=== PATIENT | male | born 1995 ===

== ENCOUNTER 2021-12-31 09:13 | Emergency (ER) | payer OTHER ==
[~2021-12-31] VITALS: Ht 180.3 cm; Wt 77.1 kg
[2021-12-31] MEDS ORDERED: BACITRACIN ZIN1 EAC1 TOP (10:36)
== END 2021-12-31 11:20 | disposition home or self-care (01) ==
LOC: ER 09:13
DX: T21.26XA Burn of second degree of male genital region, initial encounter (principal); X11.8XXA Contact with other hot tap-water, initial encounter
CPT/HCPCS: J1885